=== PATIENT | female | born 1975 | race Hispanic/Latino ===

== ENCOUNTER 2018-02-19 17:55 | Emergency (ER) | payer SELFPAY ==
[2018-02-19 19:45] LABS: Urine Bacteria 20-50 /HPF (<20)
[2018-02-19 19:46] LABS: Urine Amorphous Sediment 1+ /HPF (NONE SEEN); Urine Culture Reflex Order NOT NEEDED; Urine Mucus 1+ /HPF (NONE SEEN)
[2018-02-19 20:00] LABS: Absolute Lymphocytes (CBC) 3.2 K/uL (0.7-4.9); Absolute Monocytes 1.1 K/uL (0.1-1.3); Absolute Neutrophil 14.5 K/uL (1.8-8.0); Basophils % 0.6 % (0-1.3); Eosinophils % 1.3 % (0-4.4); Hematocrit 41.6 % (36.0-45.0); Lymphocytes % 16.6 % (15.3-44.8); MCH 29.1 pg (27.0-35.0); MCV 86.7 fL (80-100); MPV 7.4 fL (7.6-11.3); Monocytes % 5.6 % (3.3-12.3)
--- NOTE | 2018-02-19 20:06 | RAD REPORT ---
EXAM DESCRIPTION: CT - Stone Protocol - 02/19/2018 7:49 pm CLINICAL HISTORY: Abdominal pain. Hematuria COMPARISON: June 2017 TECHNIQUE: Computed axial tomography of the abdomen pelvis was obtained without oral or IV contrast. Lack of IV and oral contrast limits evaluation of solid organs, bowel, and vessels. Coronal reformat melo images were obtained and reviewed. All CT scans are performed using dose optimization technique as appropriate and may include automated exposure control or mA/KV adjustment according to patient size. FINDINGS: A renal calculus is not seen. An ureteral calculus is not noted. A bladder calculus is not present. The liver, spleen, pancreas and adrenals appear grossly normal There is no evidence of diverticulitis. The appendix appears normal The gallbladder is been removed. Hysterectomy has been performed IMPRESSION: Negative for a genitourinary calculus
[2018-02-19 20:13] LABS: Potassium 3.5 mEq/L (3.6-5.0)
--- NOTE | 2018-02-19 20:26 | ER ---
Nurse's Notes [facility] Name: Katie Elizalde Age: 42 yrs Sex: Female : 1975 Arrival Date: 02/19/2018 Time: 17:58 Bed 4 Private MD: None, None Diagnosis: Acute cystitis with hematuria Presentation: 02/19 18:32 Presenting complaint: Patient states: Blood in urine and a feeling of pressure when she aj1 goes to the bathroom since 0900 this morning. Reports back pain, burning with urination, urinary frequency. States that she has had a kidney stone before and it felt like this. Transition of care: patient was not received from another setting of care. Onset of symptoms was February 19, 2018 at 09:00. Risk Assessment: Do you want to hurt yourself or someone else? Patient reports no desire to harm self or others. Initial Sepsis Screen: Does the patient meet any 2 criteria? No. Patient's initial sepsis screen is negative. Does the patient have a suspected source of infection? No. Patient's initial sepsis screen is negative. Care prior to arrival: None. 18:32 Method Of Arrival: Ambulatory [facility] 18:32 Acuity: KAYLA 3 aj1 Triage Assessment: 18:37 General: Appears in no apparent distress. uncomfortable, Behavior is calm, cooperative, aj1 appropriate for age. Pain: Complains of pain in low back area, abdomen and pelvis Pain does not radiate. Pain currently is 10 out of 10 on a pain scale. Quality of pain is described as "it just hurts". : Reports burning with urination, urinary frequency, Denies vaginal bleeding. 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 - Social history:: Smoking status: Patient/guardian denies using tobacco. - Ebola Screening: : Patient denies travel to an Ebola-affected area in the 21 days before illness onset. Screenin:34 Abuse screen: Denies threats or abuse. Nutritional screening: No deficits noted. tl2 Tuberculosis screening: No symptoms or risk factors identified. Fall Risk None identified. Assessment: 19:34 General: Appears in no apparent distress. uncomfortable, Behavior is calm, cooperative, tl2 appropriate for age. Pain: Complains of pain in pelvis and low back area. Neuro: Level of Consciousness is awake, alert, obeys commands, Oriented to person, place, time, situation. Cardiovascular: Denies chest pain. Respiratory: Airway is patent Respiratory effort is even, unlabored, Respiratory pattern is regular, symmetrical. GI: No signs and/or symptoms were reported involving the gastrointestinal system. : Reports blood in urine. Derm: Skin is pink, warm \\T\\ dry. 20:20 Reassessment: pt c/o pain and burning with urination, PA notified, new orders see MAR. tl2 20:53 Reassessment: Patient appears in no apparent distress at this time. Patient and/or tl2 family updated on plan of care and expected duration. Pain level reassessed. Patient is alert, oriented x 3, equal unlabored respirations, skin warm/dry/pink. pt verbalized understanding of discharge instructions, need for follow up and prescription usage Patient states feeling better. Vital Signs: 18:37 BP 127 / 78; Pulse 90; Resp 18; Temp 97.6(O); Pulse Ox 97% on R/A; Weight 89.81 kg (R); aj1 Height 4 ft. 11 in. (149.86 cm); Pain 10/10; 20:18 BP 118 / 74; Pulse 59; Resp 18; Pulse Ox 97% on R/A; tl2 20:53 BP 120 / 72; Pulse 61; Resp 18; Pulse Ox 98% on R/A; tl2 18:37 Body Mass Index 39.99 (89.81 kg, 149.86 cm) aj1 ED Course: 17:58 Patient arrived in ED. mr 17:59 None, None is Private Physician. mr 18:36 Triage completed. aj1 18:37 Arm band placed on Patient placed in waiting room, Patient notified of wait time. aj1 19:10 Becca Aguilar, DOLORES is Primary Nurse. tl2 19:11 Evans Barker, PA is PHCP. jr8 19:11 Jaiden Mcdaniel MD is Attending Physician. jr8 19:15 Urine collected: clean catch specimen. bb 19:34 Patient has correct armband on for positive identification. Placed in gown. Bed in low tl2 position. Call light in reach. Side rails up X 1. Adult w/ patient. 19:[address] via wheelchair. juana 19:49 CT Stone Protocol In Process Unspecified. EDMS 19:49 Inserted saline lock: 20 gauge in right antecubital area, using aseptic technique. oe Blood collected. 20:53 No provider procedures requiring assistance completed. IV discontinued, intact, tl2 bleeding controlled, No redness/swelling at site. Pressure dressing applied. Administered Medications: 20:20 Drug: Rocephin 2 grams Route: IV; Rate: calculated rate; Site: right antecubital; tl2 20:54 Follow up: IV Status: Completed infusion tl2 20:32 Drug: TORadol 30 mg Route: IVP; Site: right antecubital; tl2 20:54 Follow up: Response: No adverse reaction; Pain is decreased tl2 20:32 Drug: morphine 4 mg Route: IVP; Site: right antecubital; tl2 20:54 Follow up: Response: No adverse reaction; Pain is decreased tl2 20:32 Drug: Zofran 4 mg Route: IVP; Site: right antecubital; tl2 20:55 Follow up: Response: No adverse reaction tl2 Outcome: 20:25 Discharge ordered by MD. morrison 20:53 Discharged to home ambulatory, with family. tl2 20:53 Condition: stable 20:53 Discharge instructions given to patient, Instructed on discharge instructions, follow up and referral plans. medication usage, Demonstrated understanding of instructions, follow-up care, medications, Prescriptions given X 3. 20:55 Patient left the ED. tl2 Signatures: Dispatcher [employer] EDMS Sasha Waddell, RN RN aj1 Carey Taylor Brenda, RN RN bb Roszak, Josh, PA PA jr8 Becca Aguilar RN RN tl2 Camilo Wolff Orlando oe
--- NOTE | 2018-02-19 20:26 | EDPHYS ---
Physician Documentation [facility] Name: Katie Elizalde Age: 42 yrs Sex: Female : 1975 Arrival Date: 02/19/2018 Time: 17:58 Bed 4 Private MD: None, None ED Physician Jaiden Mcdaniel HPI: 02/19 20:22 This 42 yrs old Female presents to ER via Ambulatory with complaints of jr8 Vaginal Bleeding, Back Pain, Abdominal Pain, Pelvic Pain. 20:22 The patient presents with urinary symptoms, dysuria, hematuria, urgency. Onset: The jr8 symptoms/episode began/occurred acutely, yesterday. Modifying factors: The symptoms are alleviated by nothing, the symptoms are aggravated by urinating. Associated signs and symptoms: Pertinent positives: abdominal pain, back pain. Severity of symptoms: At their worst the symptoms were moderate, in the emergency department the symptoms are unchanged. The patient has not experienced similar symptoms in the past. The patient has not recently seen a physician. 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 - Social history:: Smoking status: Patient/guardian denies using tobacco. - Ebola Screening: : Patient denies travel to an Ebola-affected area in the 21 days before illness onset. ROS: 20:22 Eyes: Negative for injury, pain, redness, and discharge, ENT: Negative for injury, jr8 pain, and discharge, Neck: Negative for injury, pain, and swelling, Cardiovascular: Negative for chest pain, palpitations, and edema, Respiratory: Negative for shortness of breath, cough, wheezing, and pleuritic chest pain, MS/Extremity: Negative for injury and deformity, Skin: Negative for injury, rash, and discoloration, Neuro: Negative for headache, weakness, numbness, tingling, and seizure. 20:22 Abdomen/GI: Positive for abdominal pain, Negative for nausea, vomiting, and diarrhea, abdominal cramps, abdominal distension, anorexia, dysphagia, hematemesis, black/tarry stool, rectal pain, rectal bleeding, bowel incontinence, flatulence. 20:22 Back: Positive for pain at rest, of the low back area, Negative for radiated pain. Exam: 20:22 Eyes: Pupils equal round and reactive to light, extra-ocular motions intact. Lids and jr8 lashes normal. Conjunctiva and sclera are non-icteric and not injected. Cornea within normal limits. Periorbital areas with no swelling, redness, or edema. ENT: Nares patent. No nasal discharge, no septal abnormalities noted. Tympanic membranes are normal and external auditory canals are clear. Oropharynx with no redness, swelling, or masses, exudates, or evidence of obstruction, uvula midline. Mucous membranes moist. Neck: Trachea midline, no thyromegaly or masses palpated, and no cervical lymphadenopathy. Supple, full range of motion without nuchal rigidity, or vertebral point tenderness. No Meningismus. Cardiovascular: Regular rate and rhythm with a normal S1 and S2. No gallops, murmurs, or rubs. Normal PMI, no JVD. No pulse deficits. Respiratory: Lungs have equal breath sounds bilaterally, clear to auscultation and percussion. No rales, rhonchi or wheezes noted. No increased work of breathing, no retractions or nasal flaring. Back: No spinal tenderness. No costovertebral tenderness. Full range of motion. Skin: Warm, dry with normal turgor. Normal color with no rashes, no lesions, and no evidence of cellulitis. MS/ Extremity: Pulses equal, no cyanosis. Neurovascular intact. Full, normal range of motion. Neuro: Awake and alert, GCS 15, oriented to person, place, time, and situation. Cranial nerves II-XII grossly intact. Motor strength 5/5 in all extremities. Sensory grossly intact. Cerebellar exam normal. Normal gait. 20:22 Abdomen/GI: Inspection: obese Bowel sounds: active, all quadrants, Palpation: soft, in all quadrants, mild abdominal tenderness, in the suprapubic area, mass, is not appreciated, rebound tenderness, is not appreciated, voluntary guarding, is not appreciated, involuntary guarding, is not appreciated, no appreciated organomegaly, Indicators: McBurney's point is not tender, Drake's sign is negative, Rovsing's sign is negative, Liver: no appreciated palpable abnormalities, tenderness, is not appreciated. Vital Signs: 18:37 BP 127 / 78; Pulse 90; Resp 18; Temp 97.6(O); Pulse Ox 97% on R/A; Weight 89.81 kg (R); aj1 Height 4 ft. 11 in. (149.86 cm); Pain 10/10; 20:18 BP 118 / 74; Pulse 59; Resp 18; Pulse Ox 97% on R/A; tl2 20:53 BP 120 / 72; Pulse 61; Resp 18; Pulse Ox 98% on R/A; tl2 18:37 Body Mass Index 39.99 (89.81 kg, 149.86 cm) aj1 MDM: 19:25 Patient medically screened. [facility] 20:24 Data reviewed: vital signs, nurses notes, lab test result(s), radiologic studies, CT jr8 scan, and as a result, I will discharge patient. Data interpreted: Pulse oximetry: on room air is 97 %. Interpretation: normal. Counseling: I had a detailed discussion with the patient and/or guardian regarding: the historical points, exam findings, and any diagnostic results supporting the discharge/admit diagnosis, lab results, radiology results, the need for outpatient follow up, a family practitioner, to return to the emergency department if symptoms worsen or persist or if there are any questions or concerns that arise at home. Response to treatment: the patient's symptoms have markedly improved after treatment. 02/19 19:24 Order name: Urine Dipstick--Ancillary (enter results) [facility] 02/19 19:24 Order name: Urine --Ancillary (enter results) [facility] 02/19 19:24 Order name: Urine Microscopic Only; Complete Time: 20:06 [facility] 02/19 19:24 Order name: Urine Culture [facility] 02/19 19:27 Order name: CBC with Diff; Complete Time: 20:06 [facility] 02/19 19:27 Order name: Basic Metabolic Panel; Complete Time: 20:19 [facility] 02/19 19:27 Order name: IV; Complete Time: 19:42 [facility] 02/19 19:27 Order name: CT Stone Protocol; Complete Time: 20:19 jr8 Administered Medications: 20:20 Drug: Rocephin 2 grams Route: IV; Rate: calculated rate; Site: right antecubital; tl2 20:54 Follow up: IV Status: Completed infusion tl2 20:32 Drug: TORadol 30 mg Route: IVP; Site: right antecubital; tl2 20:54 Follow up: Response: No adverse reaction; Pain is decreased tl2 20:32 Drug: morphine 4 mg Route: IVP; Site: right antecubital; tl2 20:54 Follow up: Response: No adverse reaction; Pain is decreased tl2 20:32 Drug: Zofran 4 mg Route: IVP; Site: right antecubital; tl2 20:55 Follow up: Response: No adverse reaction tl2 Disposition: 02/20 06:01 Co-signature as Attending Physician, Jaiden Mcdaniel MD I agree with the assessment and cr plan of care. Disposition: 02/19/18 20:25 Discharged to Home. Impression: Acute cystitis with hematuria. - Condition is Stable. - Discharge Instructions: Urinary Tract Infection. - Prescriptions for Pyridium 200 mg Oral Tablet - take 1 tablet by ORAL route every 8 hours for 3 days; 9 tablet. Zofran 4 mg Oral Tablet - take 1 tablet by ORAL route every 12 hours As needed; 20 tablet. Macrobid 100 mg Oral Capsule - take 1 capsule by ORAL route every 12 hours for 7 days; 14 capsule. - Medication Reconciliation Form, Thank You Letter, Antibiotic Education, Prescription Opioid Use form. - Follow up: Private Physician; When: 5 - 6 days; Reason: Recheck today's complaints, Continuance of care, Re-evaluation by your physician. - Problem is new. - Symptoms have improved. Signatures: Dispatcher [employer] Sasha Saba RN RN aj1 Jaiden Mcdaniel MD MD cha Roszak, Josh, PA PA jr8 Becca Aguilar RN RN tl2 Corrections: (The following items were deleted from the chart) 02/19 20:55 20:25 02/19/2018 20:25 Discharged to Home. Impression: Acute cystitis with hematuria. tl2 Condition is Stable. Forms are Medication Reconciliation Form, Thank You Letter, Antibiotic Education, Prescription Opioid Use. Follow up: Private Physician; When: 5 - 6 days; Reason: Recheck today's complaints, Continuance of care, Re-evaluation by your physician. Problem is new. Symptoms have improved. jr8
[2018-02-19] MEDS ORDERED: ONDANSETRON 4 MG/2 ML VIAL ONE (20:33)
[2018-02-19] MEDS ORDERED: KETOROLAC 30 MG/ML INJ ONE (20:33)
[2018-02-19] MEDS ORDERED: CEFTRIAXONE/SWI 1gm 2 GM/20 ML SYR ONE (20:33)
[2018-02-19 22:35] LABS: Urine Blood 3+ (NEG); Urine Glucose NEGATIVE (NEG); Urine Protein 3+ (NEG); Urine Specific Gravity >1.030 (1.005-1.030)
== END 2018-02-19 20:55 | disposition home or self-care (01) ==
LOC: ER 17:55
DX: N30.01 Acute cystitis with hematuria (principal)
CPT/HCPCS: 36415; 74176; 76377; 80048; 81003; 81015; 81025; 85025; 87086; 87088; 96365; 96375; 99284; J0696; J2405

== ENCOUNTER 2018-07-19 21:30 | Emergency (ER) | payer SELFPAY ==
[2018-07-19] MEDS ORDERED: DERMABOND SKIN ADHESIVE TOP ONE (22:12)
--- NOTE | 2018-07-19 23:25 | ER ---
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 Laceration and bruising noted to right cheek, bleeding controlled. Care prior to arrival: None. Mechanism of Injury: Fall from standing position. Trauma event details: Injury occurred in the [facility], Injury occurred: at home. Injury occurred: July 19, 2018 Injury occurred at: 19:30. 21:40 Method Of Arrival: Ambulatory aj 21:40 Acuity: KAYLA 3 aj 21:48 Transition of care: patient was not received from another setting of care. Onset of cc3 symptoms was July 19, 2018. Risk Assessment: Do you want to hurt yourself or someone else? Patient reports no desire to harm self or others. Initial Sepsis Screen: Does the patient meet any 2 criteria? No. Patient's initial sepsis screen is negative. Does the patient have a suspected source of infection? No. Patient's initial sepsis screen is negative. Triage Assessment: 21:43 Neuro: Reports dizziness. GI: Reports nausea, vomiting. 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 - Social history:: Smoking status: Patient/guardian denies using tobacco. - Ebola Screening: : Patient negative for fever greater than or equal to 101.5 degrees Fahrenheit, and additional compatible Ebola Virus Disease symptoms Patient denies exposure to infectious person Patient denies travel to an Ebola-affected area in the 21 days before illness onset No symptoms or risks identified at this time. - Family history:: not pertinent. - Hospitalizations: : No recent hospitalization is reported. Screenin:48 Abuse screen: Denies threats or abuse. Denies injuries from another. Nutritional cc3 screening: No deficits noted. Tuberculosis screening: No symptoms or risk factors identified. Fall Risk Ambulatory Aid- None/Bed Rest/Nurse Assist (0 pts). Gait- Normal/Bed Rest/Wheelchair (0 pts) Mental Status- Oriented to own ability (0 pts). Primary Survey: 21:40 A: Airway: patent. Breathing/Chest: Respiratory pattern: regular, Respiratory effort: aj spontaneous, unlabored, Breath sounds: clear, bilaterally. Chest inspection: symmetrical rise and fall of the chest. Circulation: Skin color: pink, Skin temperature: warm, dry. Disability Alert. 21:48 Reassessment Airway Airway Patent Oxygen No O2 Breathing/Chest Respiratory pattern cc3 Regular Respiratory effort Spontaneous Unlabored Breath sounds Clear Chest inspection Symmetrical Circulation Pulses Palpable Color White [place] Temperature Warm Dry Disability Alert. Secondary Survey: 21:48 HEENT: Head No injury/deformity Face No injury/deformity Eyes: Other superficial cc3 lacerated wound on the upper lateral aspect of the patient's right eyebrow Ears: clear bilaterally. Nose: clear to bilateral nares. Throat: No injury or deformity noted. with gag reflex present. Gastrointestinal: Abdomen is soft, non-distended. : No signs and/or symptoms were reported regarding the genitourinary system. Musculoskeletal: Circulation, motion, and sensation intact. Range of motion: intact in all extremities. Injury Description: Laceration sustained to upper lateral to the right eyebrow is superficial. Assessment: 21:40 General: Appears in no apparent distress. comfortable, Behavior is calm, cooperative. aj Pain: Complains of pain in right confucianism, right zygomatic area, right elbow and right knee. Neuro: Level of Consciousness is awake, alert, obeys commands, Oriented to person, place, time, situation, Appropriate for age. Respiratory: Airway is patent Respiratory effort is even, unlabored, Respiratory pattern is regular, symmetrical. Derm: Skin is intact, is healthy with good turgor, Skin is pink, warm \T\ dry. normal, Bruising that is dark purple, on right eye and right zygomatic area. Injury Description: Laceration sustained to right zygomatic area. 22:30 Reassessment: Patient appears in no apparent distress at this time. Patient and/or cc3 family updated on plan of care and expected duration. Pain level reassessed. Patient is alert, oriented x 3, equal unlabored respirations, skin warm/dry/pink. 23:35 Reassessment: Patient appears in no apparent distress at this time. Patient and/or cc3 family updated on plan of care and expected duration. Pain level reassessed. Patient is alert, oriented x 3, equal unlabored respirations, skin warm/dry/pink. Dr. Taveras discharged the patient home, no prescription given. No IV cannula in situ. Patient left ER vitally stable and ambulatory. Vital Signs: 21:40 BP 122 / 78; Pulse 77; Resp 16; Temp 98.0; Pulse Ox 98% on R/A; Weight 88.45 kg; Height aj 5 ft. 0 in. (152.40 cm); 23:24 BP 117 / 75; Pulse 85; Resp 18 S; Pulse Ox 96% on R/A; cc3 21:40 Body Mass Index 38.08 (88.45 kg, 152.40 cm) aj Renetta Coma Score: 21:40 Eye Response: spontaneous(4). Verbal Response: oriented(5). Motor Response: obeys aj commands(6). Total: 15. Trauma Score (Adult): 21:40 Eye Response: spontaneous(1); Verbal Response: oriented(1); Motor Response: obeys aj commands(2); Systolic BP: > 89 mm Hg(4); Respiratory Rate: 10 to 29 per min(4); Renetta Score: 15; Trauma Score: 12 ED Course: 21:33 Patient arrived in ED. am2 21:33 Suzi Connolly FNP is Private Physician. am2 21:41 Triage completed. aj 21:43 Arm band placed on left wrist. Patient placed in an exam room, on a stretcher. aj 21:48 Zheng Taveras MD is Attending Physician. rn 21:48 Fabienne Ordonez is Primary Nurse. cc3 21:48 Patient has correct armband on for positive identification. Bed in low position. Call cc3 light in reach. Side rails up X 1. Pulse ox on. NIBP on. 21:48 Patient maintains SpO2 saturation greater than 95% on room air. Thermoregulation: warm cc3 blanket given to patient. 22:11 CT completed. Patient moved to CT via wheelchair. Patient moved back from CT. cw1 22:16 CT Head Brain wo Cont In Process Unspecified. EDMS 22:16 CT Facial Bones W/O Con In Process Unspecified. EDMS 23:35 No provider procedures requiring assistance completed. Patient did not have IV access cc3 during this emergency room visit. Administered Medications: 23:24 CANCELLED (Duplicate Order): Zofran 4 mg IVP once; over 2 minutes rn 23:25 Drug: Motrin 800 mg Route: PO; cc3 23:35 Follow up: Response: No adverse reaction cc3 23:25 Drug: Zofran 4 mg Route: PO; cc3 23:35 Follow up: Response: No adverse reaction cc3 Intake: 23:00 PO: 250ml (Water); Total: 250ml. cc3 Outcome: 23:24 Discharge ordered by . rn 23:35 Discharged to home ambulatory. cc3 23:35 Condition: stable 23:35 Discharge instructions given to patient, Instructed on discharge instructions, follow up and referral plans. Demonstrated understanding of instructions, follow-up care. 23:35 Patient's length of stay was not longer than 2 hours. cc3 23:38 Patient left the ED. cc3 Signatures: Dispatcher [employer] Chrissy Cole RN RN aj Nieto, Roman, MD MD rn Woodley, Crystal cw1 Chrissy Arias am2 Fabienne Ordonez cc3
--- NOTE | 2018-07-19 23:25 | EDPHYS ---
Physician Documentation [facility] Name: Katie Elizalde Age: 42 yrs Sex: Female : 1975 Arrival Date: 07/19/2018 Time: 21:33 Bed 13 Private MD: Suzi Connolly C ED Physician Zheng Taveras HPI: 07/19 22:05 This 42 yrs old Female presents to ER via Ambulatory with complaints of Fall rn Injury, Dizziness, Vomiting, Laceration. 22:05 Details of fall: The patient fell from an upright position, while walking. Onset: The rn symptoms/episode began/occurred just prior to arrival. Associated injuries: The patient sustained injury to the head. Severity of symptoms: At their worst the symptoms were mild, in the emergency department the symptoms are unchanged. The patient has not experienced similar symptoms in the past. REports fall, tripped on her sandals, hit head on either moped or grill edge, no LOC, not on blood thinners, + laceration to anabaptism and vomited once so urged to come in. . 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 - Social history:: Smoking status: Patient/guardian denies using tobacco. - Ebola Screening: : Patient negative for fever greater than or equal to 101.5 degrees Fahrenheit, and additional compatible Ebola Virus Disease symptoms Patient denies exposure to infectious person Patient denies travel to an Ebola-affected area in the 21 days before illness onset No symptoms or risks identified at this time. - Family history:: not pertinent. - Hospitalizations: : No recent hospitalization is reported. ROS: 22:05 Constitutional: Negative for fever, chills, and weight loss, Eyes: + right facial pain rn and injury ENT: + facial injury and pain Neck: Negative for injury, pain, and swelling, Cardiovascular: Negative for chest pain, palpitations, and edema, Respiratory: Negative for shortness of breath, cough, wheezing, and pleuritic chest pain, Abdomen/GI: Negative for abdominal pain, diarrhea, and constipation, MS/Extremity: Negative for injury and deformity, Skin: Negative for injury, rash, and discoloration, Neuro: + mild headache, no seizure or LOC Exam: 22:05 Constitutional: This is a well developed, well nourished patient who is awake, alert, rn and in no acute distress. Head/Face: Normocephalic, + vertical, linear, 3cm superficial laceration to right anabaptism, no active bleeding, does not open more than 2mm with lateral pressure. Eyes: + right periorbital swelling and ecchymosis, EOMI no sign of entrapment. ENT: + upper lip contusion without laceration. No intraoral trauma. Neck: No cervical tenderness Back: No spinal tenderness. No costovertebral tenderness. Full range of motion. MS/ Extremity: Pulses equal, no cyanosis. Neurovascular intact. Full, normal range of motion. Equal circumference. Neuro: Awake and alert, GCS 15, oriented to person, place, time, and situation. Cranial nerves II-XII grossly intact. Motor strength 5/5 in all extremities. Sensory grossly intact. Cerebellar exam normal. Normal gait. Vital Signs: 21:40 BP 122 / 78; Pulse 77; Resp 16; Temp 98.0; Pulse Ox 98% on R/A; Weight 88.45 kg; Height aj 5 ft. 0 in. (152.40 cm); 23:24 BP 117 / 75; Pulse 85; Resp 18 S; Pulse Ox 96% on R/A; cc3 21:40 Body Mass Index 38.08 (88.45 kg, 152.40 cm) aj Renetta Coma Score: 21:40 Eye Response: spontaneous(4). Verbal Response: oriented(5). Motor Response: obeys aj commands(6). Total: 15. Trauma Score (Adult): 21:40 Eye Response: spontaneous(1); Verbal Response: oriented(1); Motor Response: obeys aj commands(2); Systolic BP: > 89 mm Hg(4); Respiratory Rate: 10 to 29 per min(4); Belcher Score: 15; Trauma Score: 12 Laceration: 23:23 Wound Repair of 3cm ( 1.2in ) subcutaneous laceration to right anabaptism. Distal rn neuro/vascular/tendon intact. Wound prep: Extensive cleansing by nurse. Skin closed with 1 thin layer Adhesive skin closure using Dermabond. Dressed with steri-strip. Patient tolerated well. MDM: 21:48 Patient medically screened. rn 23:23 Differential diagnosis: closed head injury, contusion, laceration. Data reviewed: vital rn signs, nurses notes, radiologic studies, CT scan, and as a result, I will discharge patient. Counseling: I had a detailed discussion with the patient and/or guardian regarding: the historical points, exam findings, and any diagnostic results supporting the discharge/admit diagnosis, radiology results, the need for outpatient follow up, to return to the emergency department if symptoms worsen or persist or if there are any questions or concerns that arise at home. Special discussion: Based on the patient's history, exam and DX evaluation, there is no indication for emergent intervention or inpatient TX. It is understood by the patient/guardian that if the SXs persist or worsen they need to return immediately for re-evaluation. I discussed with the patient/guardian in detail that at this point there is no indication for admission to the hospital. It is understood, however, that if the symptoms persist or worsen the patient needs to return immediately for re-evaluation. 07/19 21:53 Order name: CT Head Brain wo Cont rn 07/19 21:53 Order name: CT Facial Bones W/O Con rn 07/19 21:53 Order name: Wound Care; Complete Time: 22:47 rn 07/19 21:53 Order name: Dermabond; Complete Time: 22:47 rn Administered Medications: 23:24 CANCELLED (Duplicate Order): Zofran 4 mg IVP once; over 2 minutes rn 23:25 Drug: Motrin 800 mg Route: PO; cc3 23:35 Follow up: Response: No adverse reaction cc3 23:25 Drug: Zofran 4 mg Route: PO; cc3 23:35 Follow up: Response: No adverse reaction cc3 Disposition: 07/19/18 23:24 Discharged to Home. Impression: Superficial injury of unspecified part of head, Facial laceration. - Condition is Stable. - Discharge Instructions: Head Injury, Adult, Facial Laceration. - Medication Reconciliation Form, Thank You Letter, Antibiotic Education, Prescription Opioid Use, Work release form form. - Follow up: Private Physician; When: As needed; Reason: Recheck today's complaints, Re-evaluation by your physician. - Problem is new. - Symptoms have improved. Signatures: Dispatcher [employer] EDChrissy Sen RN Zheng Thorne MD MD rn Cordel, Charlene cc3 Corrections: (The following items were deleted from the chart) 23:24 23:24 Zofran 4 mg IVP once; over 2 minutes ordered. stu peraza 23:38 23:24 07/19/2018 23:24 Discharged to Home. Impression: Superficial injury of cc3 unspecified part of head; Facial laceration. Condition is Stable. Forms are Medication Reconciliation Form, Thank You Letter, Antibiotic Education, Prescription Opioid Use. Follow up: Private Physician; When: As needed; Reason: Recheck today's complaints, Re-evaluation by your physician. Problem is new. Symptoms have improved. rn
[2018-07-19] MEDS ORDERED: IBUPROFEN 400 MG TAB ONE (23:35)
[2018-07-19] MEDS ORDERED: ONDANSETRON 4 MG (ODT) TAB ONE (23:36)
--- NOTE | 2018-07-20 07:49 | RAD REPORT ---
EXAM DESCRIPTION: CT - Head Brain Wo Cont - 07/20/2018 4:41 am CLINICAL HISTORY: Fall, right-sided head trauma A preliminary report was provided at the time of the study and reviewed prior to final report. COMPARISON: None. TECHNIQUE: Axial 5 mm thick images of the head were obtained without IV contrast. All CT scans are performed using dose optimization technique as appropriate and may include automated exposure control or mA/KV adjustment according to patient size. FINDINGS: No intracranial hemorrhage, mass, edema or shift of mid-line structures. No acute infarcti on changes seen. No abnormal extra-axial fluid collections. Ventricles are normal. Mastoid air cells are clear and visualized portions of the paranasal sinuses are clear of significant disease. Trace mucosal thickening in the sphenoid and ethmoid air cells No acute bony findings. IMPRESSION: Negative non-contrast CT head examination for acute or significant finding.
--- NOTE | 2018-07-20 07:52 | RAD REPORT ---
EXAM DESCRIPTION: CT - Facial Bones W/ Mpr - 07/20/2018 4:42 am CLINICAL HISTORY: Fall, right-sided head and facial trauma A preliminary report was provided at the time of the study and reviewed prior to final report. COMPARISON: None. TECHNIQUE: Axial 2 millimeter thick images of the facial bones were obtained with sagittal and coron al reconstruction imaging. All CT scans are performed using dose optimization technique as appropriate and may include automated exposure control or mA/KV adjustment according to patient size. FINDINGS: No facial bone fracture. There is mild bruising over the right maxilla. No globe or orbital content abnormality. Mastoid air cells are clear. Mild mucosal thickening of the paranasal sinuses present without air-fluid level. No foreign body. IMPRESSION: No facial bone fracture. Mild contusion of the right maxillary subcutaneous fatty tissue s.
== END 2018-07-19 23:38 | disposition home or self-care (01) ==
LOC: ER 21:30
PROC: 0JQ10ZZ Repair Face Subcutaneous Tissue and Fascia, Open Approach (ICD-10-PCS; principal; 2018-07-19)
DX: S01.81XA Laceration without foreign body of other part of head, initial encounter (principal); W01.0XXA Fall on same level from slipping, tripping and stumbling without subsequent striking against object, initial encounter; Y93.01 Activity, walking, marching and hiking
CPT/HCPCS: 70450; 70486; 76377; 99284